=== PATIENT | female | born 1950 | race Caucasian/White ===

== ENCOUNTER → 2017-07-12 | Outpatient (CLI) | payer OTHER, BC ==
[~2017-07-12] MED LIST: 24 HOUR ALLER15.8 ML BOTH NARES; ALBUTEROL2.5 MG/3 M IH; AMBIEN10 M1 PO; AMBIEN10 MG PO; ASPIR 8181 M1 PO; AXERT12.5 MG PO; Ambien PO; CARDIZEM120 MG PO; CELEXA20 MG PO; CELEXA40 MG PO; CHONDROITIN; CITALOPRAM HBR20 M1 PO; CITALOPRAM HBR40 MG PO; CLONAZEPAM0.5 MG PO; Cardizem CD,Cartia X PO; DILT-CD120 MG PO; DILTIAZEM 24HR120 MG PO; Ecotrin PO; FLEXERIL10 MG PO; FLOVENT 22120 INHALA IH; FLUTICASONE PRO16 GM BOTH NARES; FLUTICASONE PRO60 ML TP; Flovent 220 mcg IH; HYDROCODON-ACE1 EAC7 PO; ISOSORBIDE DINI30 MG PO; ISOSORBIDE MONO30 MG PO; Imdur PO; K-DUR20 MEQ PO; KLONOPIN0.5 M1 PO; KLOR-CON 1010 ME1 PO; KlonoPIN PO; LEXAPRO20 MG PO; LO-DOSE ASPIRIN81 M1 PO; LORTAB 5-325 M1 EACH PO; MUCINEX1200 MG PO; NAPROSYN500 MG PO; NASONEX17 GM BOTH NARES; OSTEO BI-FLEX1 EAC1 PO; OSTEO-BIFLE1 CAPSULE PO; OXAYDO5 MG PO; PERCOCET 5/31 TABLET PO; POTASSIUM CHLO20 MEQ PO; POTASSIUM CL; PRAVACHOL40 MG PO; PRAVASTATIN SOD40 MG PO; PREDNISONE10 MG PO; Pravachol PO; RANITIDINE HCL150 MG PO; RESTORIL15 MG PO; SINGULAIR10 MG PO; Singulair PO; TOPAMAX100 MG PO; TOPAMAX50 MG PO; Topamax PO; Tylenol Regular Stre PO; VENTOLIN HFA18 GM IH; ZYRTEC10 M2 PO; [UNRECOGNIZED DRUG - OTHER]; [UNRECOGNIZED DRUG - OTHER] PO; celeXA PO
== END | disposition home or self-care (01) ==
LOC: MRI 10:17 → RAD 11:00 → MRI 11:00
DX: N28.1 Cyst of kidney, acquired (principal); M46.96 Unspecified inflammatory spondylopathy, lumbar region; M48.06 Spinal stenosis, lumbar region; M51.26 Other intervertebral disc displacement, lumbar region; E88.2 Lipomatosis, not elsewhere classified; R93.7 Abnormal findings on diagnostic imaging of other parts of musculoskeletal system; M19.019 Primary osteoarthritis, unspecified shoulder; M46.1 Sacroiliitis, not elsewhere classified; M51.36 Other intervertebral disc degeneration, lumbar region; M25.519 Pain in unspecified shoulder
CPT/HCPCS: 72148